=== PATIENT | female | born 1945 | race Caucasian/White ===

== ENCOUNTER 2017-10-18 12:07 | Day surgery (SDC) | payer MEDICARE ==
[~2017-10-18] VITALS: Ht 157.5 cm; Wt 65.0 kg
--- NOTE | ~2017-10-18 | OP ---
PATIENT NAME: DANNY SANCHEZ MEDICAL RECORD: [id number] LOCATION:[facility] ADMISSION DATE: SURGEON: JEM YOUSSEF MD DATE OF OPERATION: 10/18/2017 PROCEDURE: Colonoscopy with polypectomy. REFERRING PHYSICIAN: Madie Trinidad MD INDICATIONS: Ms. Sanchez is a very pleasant 72-year-old woman, referred for screening colonoscopy. She has not had any symptoms of abdominal pain, change in bowel habits, or hematochezia. She presents for outpatient screening colonoscopy. PREMEDICATIONS: Total IV anesthesia (propofol 450 mg). INSTRUMENT: Olympus video colonoscope. PROCEDURE AND FINDINGS: After receiving informed consent, Ms. Sanchez was placed in left lateral decubitus position, sedated as per anesthesia. After achieving adequate level of sedation, digital rectal exam was performed that showed no external hemorrhoidal tags, fissures, or fistulas, normal sphincter tone, no palpable rectal masses. Colonoscope was introduced per rectally and advanced to the cecum without difficulty. The cecum, IC valve, and appendiceal orifice were identified. The terminal ileum was intubated and the distal small bowel mucosa was without erythema or ulcers. As the colonoscope was withdrawn, careful inspection was made of the corcoran of the colon. Overall mucosa had normal vascular and fold pattern. In the mid rectum, was a small 0.3 cm sessile polyp removed with biopsy forcep technique. Retroflexion in rectum showed no internal hemorrhoids. A good prep was present. Withdrawal time was 6 minutes. ASSESSMENT: 1. Small rectal polyp status post polypectomy. 2. Otherwise normal colonoscopy. 3. Normal mucosa of the colonic and terminal ileal mucosa were normal. RECOMMENDATIONS: 1. Follow up histopathology. 2. High fiber diet. 3. Surveillance colonoscopy in 5 years. TRANSINT:[id number] Voice Confirmation ID: [id number] DOCUMENT ID: [id number] JEM YOUSSEF MD at 1923 CC: MADIE TRINIDAD MD [id number] DICTATION DATE: 10/18/17 1605 [employer] ANNOUNCER: 10/18/17 1644 [facility] 10/18/17 [facility] [address] [place] [address]
[2017-10-18 12:54] LABS: BASOPHILS 0.1 % (0-2); HEMATOCRIT 37.8 % (36.0-48.0); IMMATURE GRANULOCYTES 0.3 % (0-5); LYMPHOCYTES 30.2 % (15-50); MCH 31.4 pg (26.0-34.0); MCHC 34.4 g/dL (31.0-37.0); MCV 91.3 fL (80.0-100.0); MEAN PLATELET VOLUME 10.9 fL (7.4-10.4); MONOCYTES 6.7 % (2-11); NEUTROPHILS 61.7 % (40-80); PLATELET COUNT 210 10x3/uL (130-400); RBC 4.14 10x6/uL (4.00-5.40); RDW 12.2 % (11.5-14.5); WBC 6.7 10x3/uL (4.8-10.8)
[2017-10-18 13:04] LABS: ANION GAP 13.9 mmol/L (8-16); CARBON DIOXIDE 27.6 mmol/L (21.0-32.0); POTASSIUM - SERUM 3.5 mmol/L (3.5-5.1)
[2017-10-18] MEDS ORDERED: LOSARTAN POTASS25 MG PO (13:11)
[2017-10-18] MEDS ORDERED: POTASSIUM CHLORIDE C (13:11)
[2017-10-18] MEDS ORDERED: LOPRESSOR25 MG PO (13:11)
[2017-10-18] MEDS ORDERED: MOBIC7.5 MG PO (13:12)
[2017-10-18 13:23] VITALS: BP 155/60; Ht 157.5 cm; Wt 65.0 kg
== END 2017-10-18 23:00 | disposition home or self-care (01) ==
LOC: D.OPS 12:07
PROVIDERS: Internal Medicine Gastroenterology
DX: Z12.11 Encounter for screening for malignant neoplasm of colon (principal); K62.1 Rectal polyp; I10 Essential (primary) hypertension; K21.9 Gastro-esophageal reflux disease without esophagitis; Z01.812 Encounter for preprocedural laboratory examination